=== PATIENT | male | born 1970 | race Caucasian/White ===

== ENCOUNTER 2024-04-22 07:08 | Emergency (ER) | payer BC ==
[2024-04-22] MEDS ORDERED: Sodium Chloride 0.9% 10 ML Syringe FLUSH PRN (07:29)
[2024-04-22 07:33] LABS: BASOPHILS ABSOLUTE AUTO 0.06 10^3/uL (0.00-0.10); BASOPHILS PERCENT AUTO 0.6 % (0.0-1.0); EOSINOPHILS ABSOLUTE AUTO 0.36 10^3/uL (0.10-0.30); EOSINOPHILS PERCENT AUTO 3.5 % (1.0-3.0); HEMATOCRIT 46.9 % (40.0-52.0); HEMOGLOBIN 16.9 g/dL (13.0-17.0); IMMATURE GRAN ABSOLUTE AUTO 0.03 10^3/uL (0.00-0.50); IMMATURE GRAN PERCENT AUTO 0.3 % (0.0-5.0); LYMPHOCYTES ABSOLUTE AUTO 1.46 10^3/uL (1.00-4.00); LYMPHOCYTES PERCENT AUTO 14.1 % (20.0-40.0); MEAN CORPUSCULAR HEMOGLOBIN 31.3 pg (27.0-31.0); MEAN CORPUSCULAR VOLUME 86.9 fL (82.0-92.0); MEAN PLATELET VOLUME 11.7 fL (7.4-10.4); MONOCYTES ABSOLUTE AUTO 0.76 10^3/uL (0.10-0.80); MONOCYTES PERCENT AUTO 7.3 % (2.0-8.0); NEUTROPHILS ABSOLUTE AUTO 7.72 10^3/uL (2.50-7.00); NEUTROPHILS PERCENT AUTO 74.2 % (50.0-70.0); PLATELET COUNT,PLT 204 10^3/uL (150-400); RED CELL DISTRIBUTION WIDTH 12.3 % (11.5-14.5); WHITE BLOOD CELL COUNT,WBC 10.39 10^3/uL (5.00-10.00)
[2024-04-22 07:49] LABS: APPEARANCE,URINE SLIGHTLY CLOUDY (CLEAR); BILIRUBIN,URINE NEGATIVE (NEGATIVE); COLOR,URINE YELLOW (YELLOW); GLUCOSE,URINE NEGATIVE (NEGATIVE); KETONES,URINE NEGATIVE (NEGATIVE); LEUKOCYTE ESTERASE,URINE NEGATIVE (NEGATIVE); NITRITE,URINE NEGATIVE (NEGATIVE); OCCULT BLOOD,URINE MODERATE (NEGATIVE); PH,URINE 7.5 (5.0-9.0); PROTEIN,URINE TRACE mg/dL (NEGATIVE); UROBILINOGEN,URINE 0.2 E.U./dL (0.2-1.0)
[2024-04-22] MEDS: Sodium Chloride 0.9% 1,000 ML IV ONE (07:49)
[2024-04-22] MEDS: HYDROmorphone 1 MG/ML Syringe IVPUSH PRN (07:55)
[2024-04-22] MEDS: Ondansetron 4 MG/2 ML SDV IVPUSH ONE (07:56)
[2024-04-22 07:57] LABS: BACTERIA,URINE RARE /HPF (NONE TO FEW); EPITHELIAL CELLS,URINE RARE /LPF; MUCUS,URINE FEW /LPF (NEGATIVE); WBC,URINE 0-5 /HPF (0-5)
[2024-04-22 07:58] LABS: AMORPHOUS SEDIMENT,URINE MODERATE /HPF (0/HPF)
[2024-04-22] MEDS: Iopamidol 755 Mg/ML 100 ML Bottle IV ONE (08:52)
[2024-04-22] MEDS: Sodium Chloride 0.9% 50 ML IV SCH (08:52)
[2024-04-22 09:57] LABS: ALBUMIN 4.41 g/dL (3.40-5.00); ANION GAP 15.3 mmol/L (5-15); BILIRUBIN TOTAL 0.9 mg/dL (0.2-1.0); CALCIUM 8.6 mg/dL (8.7-10.3); CARBON DIOXIDE,CO2 26.5 mmol/L (21.0-32.0); CREATININE 1.22 mg/dL (0.51-1.17); EST CRCL DRUG DOSING (CG) 57.29 mL/min; POTASSIUM,K 2.8 mmol/L (3.5-5.1)
[2024-04-22] MEDS: Potassium Chloride 20 MEQ Tab.ER PO ONE (10:21)
[2024-04-22 12:03] VITALS: BP 146/94; PULSE 64
== END 2024-04-22 10:42 | disposition home or self-care (01) ==
LOC: KA.ED 07:08
DX: N13.2 Hydronephrosis with renal and ureteral calculous obstruction (principal); E87.6 Hypokalemia; Z88.0 Allergy status to penicillin; Z88.8 Allergy status to other drugs, medicaments and biological substances
CPT/HCPCS: 36415; 74177; 80053; 81001; 82947; 83690; 85025; 96361; 96374; 96375; 99284; 99284-25; A9270-GY; J1171; J2405; J3490; J7030; Q9967